=== PATIENT | male | born 1935 | race Caucasian/White ===

== ENCOUNTER 2019-08-29 21:41 | Emergency (ER) | payer OTHER ==
[~2019-08-29] VITALS: Ht 175.3 cm; Wt 88.5 kg
[2019-08-29 22:36] LABS: ABSOLUTE NEUTROPHILS 3.8 thou/uL (1.4-8.2); BASOPHILS 0.7 % (0.0-2.0); EOSINOPHILS 0.8 % (0.0-3.0); HEMATOCRIT 40.3 % (42.0-52.0); HEMOGLOBIN 13.4 gm/dL (14.0-18.0); LYMPHOCYTES 36.2 % (24.0-44.0); MCH 30.3 pg (26.0-34.0); MCHC 33.2 g/dL (28.0-37.0); MCV 91.4 fL (80.0-100.0); MONOCYTES 10.1 % (1.0-8.0); PLATELET COUNT 235 thou/uL (150-400); POLYS 52.2 % (36.0-66.0); RDW 13.8 % (10.5-14.5); WBC 7.2 thou/uL (4.0-11.0)
[2019-08-29 22:46] LABS: PROTIME 10.1 Seconds (9.3-11.4)
[2019-08-29 22:47] LABS: CALCIUM 9.4 mg/dL (8.5-10.1); CREATININE 0.9 mg/dL (0.7-1.3); POTASSIUM 4.1 mmol/L (3.5-5.1)
[2019-08-29 23:10] VITALS: BP 134/77
== END 2019-08-29 23:49 | disposition home or self-care (01) ==
LOC: ER 21:41
PROVIDERS: Emergency Medicine Emergency Medical Services
DX: R04.0 Epistaxis (principal); E78.5 Hyperlipidemia, unspecified; Z79.82 Long term (current) use of aspirin

== ENCOUNTER 2020-07-23 09:09 | Emergency (ER) | payer OTHER ==
[~2020-07-23] VITALS: Ht 175.3 cm; Wt 87.5 kg
[2020-07-23] MEDS ORDERED: NORVASC5 MG PO (09:32)
[2020-07-23] MEDS ORDERED: LATANOPROST 0.2.5 ML OPHTHALMIC (09:34)
[2020-07-23] MEDS ORDERED: PRAVACHOL40 MG PO (09:34)
[2020-07-23 09:59] LABS: ABSOLUTE NEUTROPHILS 4.2 thou/uL (1.4-8.2); BASOPHILS 0.6 % (0.0-2.0); EOSINOPHILS 0.7 % (0.0-3.0); HEMATOCRIT 38.6 % (42.0-52.0); HEMOGLOBIN 12.8 gm/dL (14.0-18.0); LYMPHOCYTES 23.9 % (24.0-44.0); MCH 30.1 pg (26.0-34.0); MCHC 33.2 g/dL (28.0-37.0); MCV 90.5 fL (80.0-100.0); MONOCYTES 11.3 % (1.0-8.0); PLATELET COUNT 248 thou/uL (150-400); POLYS 63.5 % (36.0-66.0); RBC 4.26 mil/uL (4.50-6.00); RDW 13.9 % (10.5-14.5); WBC 6.6 thou/uL (4.0-11.0)
[2020-07-23 10:09] LABS: PROTIME 10.4 Seconds (9.3-11.4)
[2020-07-23 10:34] VITALS: BP 133/61
== END 2020-07-23 10:35 | disposition home or self-care (01) ==
LOC: ER 09:09
PROVIDERS: Emergency Medicine
DX: R04.0 Epistaxis (principal); E78.5 Hyperlipidemia, unspecified; Z79.899 Other long term (current) drug therapy

== ENCOUNTER 2020-07-27 17:44 | Emergency (ER) | payer OTHER ==
[~2020-07-27] VITALS: Ht 172.7 cm; Wt 87.5 kg
[~2020-07-27 17:44] MED LIST: LATANOPROST 0.2.5 ML OPHTHALMIC; NORVASC5 MG PO; PRAVACHOL40 MG PO
[2020-07-27 18:44] VITALS: BP 127/73
== END 2020-07-27 18:45 | disposition home or self-care (01) ==
LOC: ER 17:44
DX: R04.0 Epistaxis (principal); E78.5 Hyperlipidemia, unspecified; Z79.899 Other long term (current) drug therapy